=== PATIENT | male | born 1960 | race Caucasian/White ===

== ENCOUNTER 2020-10-18 08:23 | Emergency (ER) | payer OTHER ==
--- OUTSIDE RECORDS SUMMARY | 2020-10-18 08:32 | XMS REPORT ---
:1960 Author Organization [facility] Address [address] [place], [address] [place] [address] Care Team Providers Name Role Phone Greyson Zhang Unavailable [phone] PROBLEMS Type Condition ICD9-CM [id number] Onset Condition SNOMED Code Notes Code Code Dates Status Problem Tobacco use F17.209 Active 788804391 disorder, continuous Problem Hyperlipidemia, E78.5 Active 62207149 unspecified hyperlipidemia type Problem Chronic J44.9 Active 29786282 obstructive pulmonary disease, unspecified COPD type ALLERGIES No Known Allergies ENCOUNTERS from 1960 to 2020-09-16 Encounter Location Date Provider Diagnosis [facility] [place] [address] Sep, Greyson Zhang [address] [place], pulmonary [place] [address] unspecified [place] type J44.9 ; Tobacco use disorder, terence nuous F17.209 ; Histo ry of CVA (cerebrovas cular accident) witho ut residual defici ts Z86.73 ; Lip le babar K13.0 ; Prediab etes R73.03 ; Hyperlipidemia, unspecified hyperlipidemia type E78.5 and Pulmo nary scarring J98.4 IMMUNIZATIONS No Information SOCIAL HISTORY Tobacco Use: Social History Observation Description Date Details (start date - stop date) Current Smoker Sex Assigned At : Social History Observation Description Sex Assigned At Unknown Alcohol Screen Question Answer Notes Did you have a drink containing alcohol in the past year? No Points 0 Interpretation Negative Tobacco Use/Smoking Question Answer Notes Are you a current smoker How many cigarettes a day do you smoke? 11-20 How often do you smoke cigarettes? every day REASON FOR REFERRAL No Information VITAL SIGNS Height 74 in Sep, Weight 195 lbs Sep, Temperature 97 degrees Fahrenheit Sep, BMI 25.03 kg/m2 Sep, Blood pressure systolic 132 mm Hg Sep, Blood pressure diastolic 78 mm Hg Sep, MEDICATIONS Medication SIG (Take, Route, Notes Start Date End Date Status Frequency, Duration) Trelegy Ellipta 1 puff Inhalation Once a Active 100-62.5-25 MCG/INH day Albuterol Sulfate Active PROCEDURES No Information RESULTS No Results REASON FOR VISIT 4wk lab f/u MEDICAL (GENERAL) HISTORY Type Description Date Surgical History Throat-cancer 2008 Goals Section No Information Health Concerns No Information MEDICAL EQUIPMENT No Information MENTAL STATUS No Information FUNCTIONAL STATUS No Information ASSESSMENTS Encounter Date Diagnosis Assessment Notes Treatment Notes Treatm ent Clinical Notes Sep, Chronic obstructive Education given. pulmonary disease, Managed by unspecified COPD pulmonary. Compliant type (ICD-10 - with medication. No J44.9) recent exacerbation. Encouraged on smoking cessation., COPD Education: This is condition in which the airways in the lungs become damaged, making it increasingly difficult for air to pass in and out. Symptoms may include: shortness of breath, chronic cough, chest pain, fatigue with exertion and other. Compliance with medication is vital to control the symptoms and to slow the progression of the disease. Symptoms of COPD cannot be completely eliminated with treatment. COPD usually worsens over time. If your symptoms acutely worsen, please contact the doctor. This may indicate a need to adjust and/or add medication. Pulmonary consultation maybe be required if symptoms do not improve. Sep, Tobacco use Strongly encourged disorder, continuous on cessation. (ICD-10 - F17.209) Education given. Counseling given. Pick a quit date. , Education, counseling done at this visit, offered web sites and medicine to help. We did discussed not only the CAD risk also the risk for multiples cancers, peripheral neuropathy, etc. www.quit.com gives you tip[s and tricks, quit smoking chelist, download my quit rajiv and read quit smoking benefits too. More than 3 minutes were spent with patient. Will follow-up as well. Sep, History of CVA . Encouraged to be (cerebrovascular compliant with accident) without aspirin residual deficits (ICD-10 - Z86.73) Sep, Lip lesion (ICD-10 - Discussed K13.0) differential diagnosis with patient. Education given. Due to chronic nature and location will refer to dermatology for further evaluation and management. Sep, Prediabetes (ICD-10 Diet-Controlled. - R73.03) Education given. Sep, Hyperlipidemia, Diet-Controlled. unspecified Education given. hyperlipidemia type Hyperlipidemia (ICD-10 - E78.5) Education: Hyperlipidemia refers to increased levels of lipids(fats) in the blood, including cholesterol and triglycerides. This can significantly increase your risk of developing coronary artery disease and peripheral artery disease. This can cause chest pain, heart attack, stroke, and fatigue. Treatment is recommended to decrease your risk. Treatment includes: lifestyle modification, low salt/low fat diet, exercise, tobacco cessation, low alcohol intake and sometimes medication. Blood tests (TC,TG, HDL, LDL) are utilized to determine treatment regimens. TC(Total cholesterol) should be below 200. TG(Total Triglycerides) should be below 150. HDL(Good cholesterol) should be above 40. LDL(Bad Cholesterol) should be below 130(if you have one risk factor) or less than 100( if you have more than one risk factor or have DM/CAD/PVD). Compliance with medication and treatment is vital. If you have questions, talk to your doctor. Sep, Pulmonary scarring Referral to Pulm. (ICD-10 - J98.4) Sep, Other -- Medication reviewed and updated. -- Dietary and Lifestyle modifications addressed regarding diet, exercise and weight managemen t. -- Treatment options, risks and benefits, side effects reviewed in detail. -- Advised on signs/symptoms to monitor and when to call clinic and/or visit the nearest ER. Patient verbalized understanding and agreeable with plan. PLAN OF TREATMENT Treatment Notes Assessment Notes Clinical Notes Chronic obstructive pulmonary Education given. Managed by disease, unspecified COPD type pulmonary. Compliant with medication. No recent exacerbation. Encouraged on smoking cessation., COPD Education: This is condition in which the airways in the lungs become damaged, making it increasingly difficult for air to pass in and out. Symptoms may include: shortness of breath, chronic cough, chest pain, fatigue with exertion and other. Compliance with medication is vital to control the symptoms and to slow the progression of the disease. Symptoms of COPD cannot be completely eliminated with treatment. COPD usually worsens over time. If your symptoms acutely worsen, please contact the doctor. This may indicate a need to adjust and/or add medication. Pulmonary consultation maybe be required if symptoms do not improve. Tobacco use disorder, continuous Strongly encourged on cessa tion. Education given. Counseling given. Pick a quit date. , Education, counseling done at this visit, offered web sites and medicine to help. We did discussed not only the CAD risk also the risk for multiples cancers, peripheral neuropathy, etc. www.quit.[employer] gives you tip[s and tricks, quit smoking chelist, download my quit rajiv and read quit smoking benefits too. More than 3 minutes were spent with patient. Will follow-up as well. History of CVA (cerebrovascular . Encouraged to be complian t with accident) without residual deficits aspirin Lip lesion Discussed differential diagnosis with patient. Education given. Due to chronic nature and location will refer to dermatology for further evaluation and management. Prediabetes Diet-Controlled. Education given. Hyperlipidemia, unspecified Diet-Controlled. Education given . hyperlipidemia type Hyperlipidemia Education: Hyperlipidemia refers to increased levels of lipids(fats) in the blood, including cholesterol and triglycerides. This can significantly increase your risk of developing coronary artery disease and peripheral artery disease. This can cause chest pain, heart attack, stroke, and fatigue. Treatment is recommended to decrease your risk. Treatment includes: lifestyle modification, low salt/low fat diet, exercise, tobacco cessation, low alcohol intake and sometimes medication. Blood tests (TC,TG, HDL, LDL) are utilized to determine treatment regimens. TC(Total cholesterol) should be below 200. TG(Total Triglycerides) should be below 150. HDL(Good cholesterol) should be above 40. LDL(Bad Cholesterol) should be below 130(if you have one risk factor) or less than 100( if you have more than one risk factor or have DM/CAD/PVD). Compliance with medication and treatment is vital. If you have questions, talk to your doctor. Pulmonary scarring Referral to Pulm. Treatment Notes Test Name Order Date Lipid Panel With LDL/HDL Ratio 2020-09-16 Hemoglobin A1c 2020-09-16 CBC With Differential/Platelet 2020-09-16 Next Appt Details 3 month TV + Labs 1 week before Reason: Provider Name:Greyson Zhang, 2020-12-10 0 8:15:00 AM, [address] [place], [address], [place], [address], Provider Name:Greyson Zhang, 2020-12-17 0 4:10:00 PM, [address] [place], [address], [place], [address], Insurance Providers Payer Name Payer Payer Insured Patient Coverage Coverage End Address Phone Name Relationship to Start Date Jonathan e Insured Ambetter from [phone] [place], [place] [id number] [place] [phone]
--- OUTSIDE RECORDS SUMMARY | 2020-10-18 08:32 | XMS REPORT ---
:1960 Author Organization [facility] Address [address] [place], Daniel. [address] [place] [address] Care Team Providers Name Role Phone Greyson Zhang Unavailable [phone] PROBLEMS Type Condition ICD9-CM [id number] Onset Condition SNOMED Code Notes Code Code Dates Status Problem Tobacco use F17.209 Active 958785741 disorder, continuous Problem Chronic J44.9 Active 78614594 obstructive pulmonary disease, unspecified COPD type ALLERGIES No Known Allergies ENCOUNTERS from 1960 to 2020-08-27 Encounter Location Date Provider Diagnosis [facility] [address] Aug, 2020 [place] [address] IMMUNIZATIONS No Information SOCIAL HISTORY Tobacco Use: [...] REASON FOR REFERRAL No Information VITAL SIGNS No information MEDICATIONS Medication SIG (Take, Route, Frequency, Start Date End Date Status Duration) Albuterol Sulfate Active Trelegy Ellipta 100-62.5-25 1 puff Inhalation Once a day Active MCG/INH PROCEDURES No Information RESULTS No Results REASON FOR VISIT CT chest results MEDICAL (GENERAL) HISTORY Type Description Date Surgical History Throat-cancer 2009 Goals Section No Information Health Concerns No Information MEDICAL EQUIPMENT No Information MENTAL STATUS No Information FUNCTIONAL STATUS No Information ASSESSMENTS No Information PLAN OF TREATMENT Next Appt Details Provider Name:Greyson Zhang, 2020-09-16 0 4:10:00 PM, [address], [address], [place], [address], Insurance Providers Payer Name Payer Payer Insured Patient Coverage Coverage End Address Phone Name Relationship to Start Date Jonathan e Insured Ambetter from [phone] [place], self [place] [id number] [address] [facility] [phone]
--- OUTSIDE RECORDS SUMMARY | 2020-10-18 08:32 | XMS REPORT ---
:1960 Author Organization [facility] Address [address] [place], [address]. [address] [place] [address] Care Team Providers Name Role Phone Greyson Zhang Unavailable [phone] PROBLEMS Type Condition ICD9-CM OIP27-XH Onset Condition SNOMED Code Notes Code Code Dates Status Problem Tobacco use F17.209 Active 575964084 disorder, continuous Problem Chronic J44.9 Active 72241169 obstructive pulmonary disease, unspecified COPD type ALLERGIES No Known Allergies ENCOUNTERS from 1960 to 2020-08-15 Encounter Location Date Provider Diagnosis [facility] [address] Aug, Greyson pelaez [facility] 200 [facility] [place] [address] in adult Z00.0 0 ; Chronic obstruc tive pulmonary disea se, unspecified HEEL BUILDER D type J44.9 ; Tobacco use disorder, terence nuous F17.209 ; Encou nter for screening f or other viral dis eases Z11.59 ; Histor y of CVA (cerebrovas cular accident) witho ut residual defici ts Z86.73 ; Encoun ter for screening f or lung cancer Z12 .2 and Lip lesion K13. 0 IMMUNIZATIONS No Information SOCIAL HISTORY Tobacco Use: [...] No Information VITAL SIGNS Height 74 in Aug, Weight 194.1 lbs Aug, Temperature 98.0 degrees Fahrenheit Aug, BMI 24.92 kg/m2 Aug, Oximetry 95 % Aug, Respiratory Rate 17 /min Aug, Blood pressure systolic 119 mm Hg Aug, Blood pressure diastolic 78 mm Hg Aug, MEDICATIONS Medication SIG (Take, Route, Frequency, Start Date End Date Status Duration) Albuterol Sulfate Active Trelegy Ellipta 100-62.5-25 1 puff Inhalation Once a day Active MCG/INH PROCEDURES No Information RESULTS No Results REASON FOR VISIT Wellness. In office. MEDICAL (GENERAL) HISTORY Type Description Date Surgical History Throat-cancer 2009 Goals Section No Information Health Concerns No Information MEDICAL EQUIPMENT No Information MENTAL STATUS No Information FUNCTIONAL STATUS No Information ASSESSMENTS Encounter Date Diagnosis Notes Aug, Lip lesion (ICD-10 - K13.0) Aug, Encounter for screening for lung cancer (ICD-10 - Z12.2) Aug, Tobacco use disorder, continuous (ICD-10 - F17.209) Aug, Chronic obstructive pulmonary disease, u nspecified COPD type (ICD-10 - J44.9) Aug, History of CVA (cerebrovascular accident ) without residual deficits (ICD-10 - Z86.73) Aug, Encounter for screening for other viral diseases (ICD-10 - Z11.59) Aug, Encounter for wellness examination in ad ult (ICD-10 - Z00.00) PLAN OF TREATMENT Treatment Notes Assessment Notes Clinical Notes Encounter for wellness examination -- Wellness Exam performe d without in adult /Rectal examination (Asymptomatic) at this time. -- Encourage regular exercise and healthy diet. -- Take a baby aspirin daily: N/A. -- Consider having a flu vaccine every August or September. -- A complete exam is suggested yearly. -- Reminder to always use seat belts. -- It is suggested that lipids (fat and cholesterol) be checked on a yearly basis. The goal here would be to keep the bad cholesterol level (LDL) below 100. -- For colorectal cancer screening, return 1 stool hemoccult cards (test for hidden blood). The [place] [employer] also suggests colonoscopy at age 50 and then every 10 years. If interested in this test, we can refer you to a surgeon or top case assembler. -- It is a good idea to periodically check the scrotum/testis for any new lumps or changes. -- It is a good idea to have a complete eye exam a minimum of every 3 years. Increased eye pressure is called glaucoma and it is a common cause of blindness. -- Encouraged on making dental appointment every 6-12 months for check-up -- Every 10 years, it is anderson to have a tuberculosis skin test (PPD) and D-Tetanus. -- Avoid excessive sun exposure. -- Apply sunscreen when outside. Check skin for any abnormal lesions/moles. Chronic obstructive pulmonary Education given. Managed by [...] spent with patient. Will follow-up as well. Encounter for screening for other Indicated as a one-time sc reen for viral diseases not high-risk patients who were born between 3615-8309. History of CVA (cerebrovascular . Encouraged to be complian t with accident) without residual deficits aspirin Lip lesion Discussed differential diagnosis with patient. Education given. Due to chronic nature and location will refer to dermatology for further evaluation and management. Treatment Notes Test Name Order Date Lipid Panel With LDL/HDL Ratio 2020-08-15 Hepatitis Panel (4) 2020-08-15 UA/M w/rflx Culture, Comp 2020-08-15 Prostate-Specific Ag, Serum 2020-08-15 Hemoglobin A1c 2020-08-15 Comp. Metabolic Panel (14) (CMP) 2020-08-15 Uric Acid, Serum 2020-08-15 CBC With Differential/Platelet 2020-08-15 TSH reflex to T4F 2020-08-15 LDCT (Low-Dose CT LUNG CA SCREENING) 2020-08-15 Next Appt Details 4 Weeks TV Reason: Provider Name:Greyson Zhang, 2020-09-16 0 4:10:00 PM, [address], [address], [place], [address], Insurance Providers Payer Name Payer Payer Insured Patient Coverage Coverage End Address Phone Name Relationship to Start Date Jonathan e Insured Ambetter from [phone] [place], self [place] [id number] [phone] [facility] [phone]
--- OUTSIDE RECORDS SUMMARY | 2020-10-18 08:32 | XMS REPORT | Continuity of Care Document ---
:1960 Author Organization [facility] Address [address] [address] Care Team Providers Name Role Phone Doctor Unassigned, Name Attending Clinician Unavailable Jakub ALVES, Y Attending Clinician Payers Payer Name Policy Type Policy Number Effective Date Expiration Date S ource Problems This patient has no known problems. Allergies, Adverse Reactions, Alerts This patient has no known allergies or adverse reactions. Medications Ordered Filled Start Stop Current Ordering Indication Dosage Frequency Signature Comments Components Source Medication Medication Date Date Medication? Clinician (SIG) Name Name Albuterol Albuterol Yes Greyson not [facility] Sulfate Sulfate Zhang defined [facility] Trelegy Trelegy Yes Greyson [facility] [address] [facility] Ellipta Ellipta Zhang [facility] Procedures This patient has no known procedures. Encounters Start End Encounter Admission Attending Care Care Encounter Source Date/Time Date/Time Type Type Clinicians Facility Department ID 2020-09-16 2020-09-[address] [facility] [id number] [facility] 2020-08-27 2020-08-[address] [facility] [id number] [facility]pat[facility] Clinics 2020-08-15 2020-08-15 [facility] [id number] Outpati ent Clinics 2020-07-16 2020-07-16 [facility] [id number] [facility] 14:10:00 14:10:00 [facility] 2020-02-16 2020-02-16 Orders Doctor GORDO [id number] 00:00:00 00:00:00 Only UnassignedLUKAS 350.1.13.10 [place] [facility] 4.2.7.2.686 [id number] 2020-01-22 2020-01-22 Telephone Jae Call [id number] 00:00:00 00:00:00 Y Pediatric 350.1.13.10 s and 4.2.7.2.686 Adult [id number] Primary [facility] 2019-07-18 2019-07-18 Hospital Jae Call [id number] 16:22:24 23:59:00 Encounter Y Pediatric 350.1.13.10 s and 4.2.7.2.686 Adult [id number] Primary 809 Care Clinic 2019-07-17 2019-07-17 Orders Doctor GORDO [id number] 00:00:00 00:00:00 Only UnassignedLUKAS 350.1.13.10 [place] [facility] 4.2.7.2.686 [id number] Results Test Description Test Time Test Comments Results Result [facility] e Comments - CT LD LUNG CA 2020-02-23 Name: SCREENING 09:59:00 ELZBIETA TERAN [facility] [place] : 1960 Age/S: 60 / M [address] [place] [address] Unit #: [id number] Loc: [facility] [place] [address] Phys: Dylan Win MD Acct: [id number] Dis Date: Status: REG CLI PHONE #: [phone] Exam Date: 02/23/2020921 FAX #: [phone] Reason: LOUISA LOUISGINIMARK, CIGS EXAMS: CPT CODE: [id number] CT LD LUNG CA SCREENING G0297 LUNG SCREENING LOW-DOSE CT THORAX WITHOUT CONTRAST HISTORY: Asymptomatic patient meeting high-risk criteria for lung screening. Nicotine dependence. Greater than 20 pack year smoking history. Currently smoking. Exam: Follow-up. COMPARISON: 10/11/2017. TECHNIQUE: Noncontrast, volumetric low-dose CT Chest. KVp = 120; mA = 50; CTDlvol = 2 mGy; DLP: 79.6 mGy-cm FINDINGS: LUNG NODULES: None. OTHER LUNG DISEASE: Severe emphysematous changes. Left apical pleural-parenchymal scarring and calcified granuloma. Right lower lobe calcified granuloma. Bilateral lung base pleural thickening. Right lower lobe bronchiectatic changes, similar to prior. AORTA: Normal caliber. HEART / PERICARDIUM: [<Normal size. No effusions. Unremarkable.>] Mild coronary atherosclerosis. ADENOPATHY: [<No significant findings.>]. BASE OF NECK: No significant findings. UPPER ABDOMEN: [<No significant findings.>] . OTHER INCIDENTALS: [<None.>]. IMPRESSION: 1. Lung-RADS Category 2. Continue annual screening with LD CT in 12 months. 2. Severe emphysema with bilateral lower lobe pleural thickening. Category S -- Other findings requiring urgent evaluation?: No. FO R INTERNAL CODING PURPOSES ONLY RESULT CODE: L2 FOLLOW UP: L12 PAGE 1 Signed Report (CONTINUED) Name: EL[facility]A [facility]AN [facility] [place] : 1960 Age/S: 60 / M [address] [place] [address] Unit #: [id number] Loc: [place] [address] Phys: Dylan Win MD Acct: [id number] Dis Date: Status: REG CLI PHONE #: [phone] Exam Date: 02/23/2020921 FAX #: [phone] Reason: EDGARELMA JENNIFER, CIGS EXAMS: CPT CODE: [id number] CT LD LUNG CA SCREENING G0297 <Continued> at 0959 Reported and signed by: Eden Willett M.D. CC: Jae Call MD; Dylan Win MD Technologist:Trey Michele, RT(R) CTDI: DLP: Trnscb Date/Time: 02/23/2020 (0959) [email or web address] Orig Print D/T: S: 02/23/2020 (1003) PAGE 2 Signed Report
--- NOTE | 2020-10-18 09:44 | RAD REPORT ---
EXAM DESCRIPTION: CT - Chest Abd Pelvis Wo Con - 10/18/2020 9:17 am CLINICAL HISTORY: Left flank pain with chest pain, COPD and lymphoma history COMPARISON: Lung Cancer Screening CT W/O dated 08/26/2020 TECHNIQUE: During dynamic enhancement using 100 milliliters nonionic IV contrast, axial 5 millimeter thick images of the chest, abdomen and pelvis were obtained. Biphasic technique was utilized through the abdomen. Oral contrast was administered. All CT scans are performed using dose optimization technique as appropriate and may include automated exposure control or mA/KV adjustment according to patient size. FINDINGS: Advanced for age fibro emphysematous lung changes are present. Findings are most pronounce d in each lung base where there is pleural thickening and pleural abutting parenchymal masslike nodul arity. No changes of the short interval since August 26. No pneumothorax or pleural effusion. No ch est wall mass or abnormal axillary lymphadenopathy seen. Mediastinal and hilar regions show no mass or lymphadenopathy. No significant cardiac finding. The liver, spleen and pancreas show no significant findings. Gallbladder and biliary tree are normal . Gallstones can be occult on CT imaging. Mild left-sided hydronephrosis is present and the left kidney appears mildly edematous relative to th e right. No obstructing or nonobstructing calculi seen. No stone in a partially filled bladder. No ad renal abnormalities. No urinary bladder abnormalities. No dilated bowel loops or focal ball bowel wall thickening. No free air, free fluid or inflammatory stranding. No hernia, mass or bulky lymphadenopathy. No significant bone or vascular finding. IMPRESSION: Mild left-sided hydronephrosis is present down to the UVJ. However, no obstructing or no nobstructing calculus seen. Patient may have recently passed a stone. Blood or inflammatory debris in the ureter can cause hydron ephrosis. Isodense masses and pyelonephritis are not excluded on noncontrast imaging. Advanced for age emphysema changes are present. The pleural thickening and pleural abutting parenchym al masslike nodularity is stable from August but warrants monitoring for growth. No acute chest find ing.
[2020-10-18] MEDS ORDERED: NA CHLORIDE 0.9% 1,000 ML ONE (10:17)
[2020-10-18] MEDS ORDERED: ONDANSETRON 4 MG/2 ML VIAL ONE (10:17)
[2020-10-18] MEDS ORDERED: MORPHINE 4 MG/ML SYR ONE (10:17)
[2020-10-18 10:37] LABS: Hematocrit 43.7 % (39.6-49.0); Lymphocytes % 8.9 % (15.3-44.8); MPV 6.8 fL (7.6-11.3); RBC Red Blood Cell Count 4.86 M/uL (4.33-5.43)
[2020-10-18 11:15] LABS: Urine Blood 2+ (NEG); Urine Glucose NEGATIVE (NEG); Urine Protein NEGATIVE (NEG)
[2020-10-18 11:17] LABS: Potassium 4.2 mmol/L (3.5-5.1)
--- NOTE | 2020-10-18 13:19 | EDPHYS ---
Physician Documentation [facility] Name: Amos Nieves Age: 60 yrs Sex: Male : 1960 Arrival Date: 10/18/2020 Time: 08:26 Bed 18 Private MD: ED Physician Juan Daniel Rutledge HPI: 10/18 10:09 This 60 yrs old Male presents to ER via Ambulatory with complaints of kb Constipation, Urinary Problem. 10:09 The patient complains of pain in the left flank. The pain radiates to the groin. Onset: kb The symptoms/episode began/occurred yesterday. Modifying factors: The symptoms are alleviated by nothing. the symptoms are aggravated by nothing. Associated signs and symptoms: Pertinent positives: urinary frequency, nausea, vomiting, Pertinent negatives: diarrhea, dizziness, dysuria, fever, headache, hematuria, pain radiating to the lower extremities. Severity of pain: At its worst the pain was moderate in the emergency department the pain has improved markedly. The patient has not experienced similar symptoms in the past. The patient has not recently seen a physician. Pt reports left flank pain started yesterday with nausea, difficulty urinating, frequency and small amounts. States the pain went away last night, then came back this morning causing nausea and vomiting. Urinary symptoms have improved and pain is starting to subside at this time.. Historical: - Allergies: 08:50 No Known Allergies; dm5 - PMHx: 08:50 COPD; lymphoma; TIA; dm5 - Immunization history:: Adult Immunizations up to date. - Social history:: Smoking status: Patient reports the use of cigarette tobacco products, smokes one-half pack cigarettes per day. ROS: 10:08 Constitutional: Negative for fever, chills, and weight loss, Cardiovascular: Negative kb for chest pain, palpitations, and edema, Respiratory: Negative for shortness of breath, cough, wheezing, and pleuritic chest pain, Abdomen/GI: Negative for abdominal pain, nausea, vomiting, diarrhea, and constipation, MS/Extremity: Negative for injury and deformity, Skin: Negative for injury, rash, and discoloration, Neuro: Negative for headache, weakness, numbness, tingling, and seizure. 10:08 Back: Positive for flank pain, on the left. 10:08 : Positive for urinary frequency, small amounts, difficulty urinating. Exam: 10:08 Constitutional: This is a well developed, well nourished patient who is awake, alert, kb and in no acute distress. Head/Face: Normocephalic, atraumatic. Chest/axilla: Normal chest wall appearance and motion. Nontender with no deformity. No lesions are appreciated. Cardiovascular: Regular rate and rhythm with a normal S1 and S2. No gallops, murmurs, or rubs. Normal PMI, no JVD. No pulse deficits. Respiratory: Lungs have equal breath sounds bilaterally, clear to auscultation and percussion. No rales, rhonchi or wheezes noted. No increased work of breathing, no retractions or nasal flaring. Abdomen/GI: Soft, non-tender, with normal bowel sounds. No distension or tympany. No guarding or rebound. No evidence of tenderness throughout. Back: No spinal tenderness. No costovertebral tenderness. Full range of motion. Skin: Warm, dry with normal turgor. Normal color with no rashes, no lesions, and no evidence of cellulitis. MS/ Extremity: Pulses equal, no cyanosis. Neurovascular intact. Full, normal range of motion. Neuro: Awake and alert, GCS 15, oriented to person, place, time, and situation. Cranial nerves II-XII grossly intact. Motor strength 5/5 in all extremities. Sensory grossly intact. Cerebellar exam normal. Normal gait. Vital Signs: 08:47 BP 136 / 79; Pulse 66; Resp 18; Temp 97.4; Pulse Ox 100% on R/A; Weight 88.45 kg; dm5 Height 6 ft. 3 in. (190.50 cm); Pain 8/10; 10:38 BP 116 / 77; Pulse 64; Resp 18; Pulse Ox 99% on R/A; ll1 11:36 BP 108 / 70; Pulse 64; Resp 18; Pulse Ox 99% on R/A; ll1 08:47 Body Mass Index 24.37 (88.45 kg, 190.50 cm) dm5 MDM: 09:50 Patient medically screened. kb 10:08 Data reviewed: vital signs, nurses notes. Data interpreted: Pulse oximetry: on room air kb is 100 %. Interpretation: normal. 11:45 Counseling: I had a detailed discussion with the patient and/or guardian regarding: the historical points, exam findings, and any diagnostic results supporting the discharge/admit diagnosis, lab results, radiology results, the need for outpatient follow up, a family practitioner, to return to the emergency department if symptoms worsen or persist or if there are any questions or concerns that arise at home. 10/18 09:57 Order name: IV Start; Complete Time: 10:16 kb 12 09:57 Order name: Urine Dipstick-Ancillary (obtain specimen); Complete Time: 11:31 kb Administered Medications: 10:15 Drug: Zofran (Ondansetron) 4 mg Route: IVP; Site: right antecubital; ll1 11:35 Follow up: Response: No adverse reaction; RASS: Alert and Calm (0) ll1 10:16 Drug: NS 0.9% 1000 ml Route: IV; Rate: 1000 ml; Site: right antecubital; ll1 11:36 Follow up: Response: No adverse reaction; RASS: Alert and Calm (0); IV Status: ll1 Completed infusion; IV Intake: 1000ml 10:16 Drug: morphine 4 mg Route: IVP; Site: right antecubital; ll1 11:36 Follow up: Response: No adverse reaction; Pain is decreased; RASS: Alert and Calm (0) ll1 Disposition: 15:01 Co-signature as Attending Physician, Juan Daniel Rutledge MD I agree with the assessment and kdr plan of care. Disposition: 10/18/20 11:46 Discharged to Home. Impression: Unspecified hydronephrosis. - Condition is Stable. - Discharge Instructions: Hydronephrosis. - Prescriptions for Zofran 4 mg Oral Tablet - take 1 tablet by ORAL route every 6 hours As needed; 20 tablet. Diclofenac Sodium 75 mg Oral Tablet, Delayed Release (E.C.) - take 1 tablet by ORAL route 2 times per day As needed; 30 tablet. - Medication Reconciliation Form, Thank You Letter, Antibiotic Education, Prescription Opioid Use form. - Follow up: Emergency Department; When: As needed; Reason: Worsening of condition. Follow up: Private Physician; When: 2 - 3 days; Reason: Recheck today's complaints, Continuance of care, Re-evaluation by your physician. Signatures: Keila Reyna, ELIAS TINOCO-Domenica Calvert, RN RN dm5 Juan Daniel Rutledge MD MD kdr Lewis, Lynsay, RN RN ll1 Corrections: (The following items were deleted from the chart) 11:57 11:46 10/18/2020 11:46 Discharged to Home. Impression: Unspecified hydronephrosis. ll1 Condition is Stable. Forms are Medication Reconciliation Form, Thank You Letter, Antibiotic Education, Prescription Opioid Use. Follow up: Emergency Department; When: As needed; Reason: Worsening of condition. Follow up: Private Physician; When: 2 - 3 days; Reason: Recheck today's complaints, Continuance of care, Re-evaluation by your physician. kb
--- NOTE | 2020-10-18 13:19 | ER ---
Nurse's Notes [facility] Name: Amos Nieves Age: 60 yrs Sex: Male : 1960 Arrival Date: 10/18/2020 Time: 08:26 Bed 18 Private MD: Diagnosis: Unspecified hydronephrosis Presentation: 10/18 08:47 Chief complaint: Patient states: left sided flank pain started yesterday. nasuea an dm5 vomiting started yesterday. pt denies history of kidney stone. Coronavirus screen: Client denies travel out of the [place] in the last 14 days. nausea, vomiting. Ebola Screen: Patient negative for fever greater than or equal to 101.5 degrees Fahrenheit, and additional compatible Ebola Virus Disease symptoms Patient denies exposure to infectious person. Patient denies travel to an Ebola-affected area in the 21 days before illness onset. No symptoms or risks identified at this time. Initial Sepsis Screen: Does the patient meet any 2 criteria? No. Patient's initial sepsis screen is negative. Does the patient have a suspected source of infection? No. Patient's initial sepsis screen is negative. Risk Assessment: Do you want to hurt yourself or someone else? Patient reports no desire to harm self or others. Onset of symptoms was October 17, 2020. 08:47 Method Of Arrival: Ambulatory dm5 08:47 Acuity: ABUNDIO 3 dm5 Triage Assessment: 10:15 General: Appears in no apparent distress. Behavior is calm, cooperative, appropriate ll1 for age. Historical: - Allergies: 08:50 No Known Allergies; dm5 - PMHx: 08:50 COPD; lymphoma; TIA; dm5 - Immunization history:: Adult Immunizations up to date. - Social history:: Smoking status: Patient reports the use of cigarette tobacco products, smokes one-half pack cigarettes per day. Screenin:52 Abuse screen: Denies threats or abuse. Nutritional screening: No deficits noted. ll1 Tuberculosis screening: No symptoms or risk factors identified. 10:38 Fall Risk IV access (20 points). Total Nichols Fall Scale indicates No Risk (0-24 pts). ll1 Assessment: 10:15 Pain: Complains of pain in left flank Pain currently is 2 out of 10 on a pain scale. ll1 Quality of pain is described as aching, Pain began 1 day ago. Neuro: No deficits noted. Cardiovascular: No deficits noted. Respiratory: No deficits noted. GI: Abdomen is flat, Bowel sounds present X 4 quads. Abd is soft and non tender X 4 quads. Reports lower abdominal pain, nausea. : No signs and/or symptoms were reported regarding the genitourinary system. Denies burning with urination. Vital Signs: 08:47 BP 136 / 79; Pulse 66; Resp 18; Temp 97.4; Pulse Ox 100% on R/A; Weight 88.45 kg; dm5 Height 6 ft. 3 in. (190.50 cm); Pain 8/10; 10:38 BP 116 / 77; Pulse 64; Resp 18; Pulse Ox 99% on R/A; ll1 11:36 BP 108 / 70; Pulse 64; Resp 18; Pulse Ox 99% on R/A; ll1 08:47 Body Mass Index 24.37 (88.45 kg, 190.50 cm) dm5 ED Course: 08:26 Patient arrived in ED. rg4 08:49 Triage completed. dm5 09:35 Keila Reyna FNP-C [facility]. kb 09:35 Juan Daniel Rutledge MD is Attending Physician. kb 09:52 Christopher Canseco, DAWSON is Primary Nurse. ll1 09:52 Arm band placed on Patient placed in an exam room, on a stretcher. ll1 10:15 Patient has correct armband on for positive identification. Bed in low position. Call ll1 light in reach. Side rails up X2. Adult w/ patient. Pulse ox on. NIBP on. 10:15 Inserted saline lock: 20 gauge in right antecubital area, using aseptic technique. ll1 Blood collected. 11:56 IV discontinued, intact, bleeding controlled, No redness/swelling at site. Pressure ll1 dressing applied. 11:57 No provider procedures requiring assistance completed. ll1 Administered Medications: 10:15 Drug: Zofran (Ondansetron) 4 mg Route: IVP; Site: right antecubital; ll1 11:35 Follow up: Response: No adverse reaction; RASS: Alert and Calm (0) ll1 10:16 Drug: NS 0.9% 1000 ml Route: IV; Rate: 1000 ml; Site: right antecubital; ll1 11:36 Follow up: Response: No adverse reaction; RASS: Alert and Calm (0); IV Status: ll1 Completed infusion; IV Intake: 1000ml 10:16 Drug: morphine 4 mg Route: IVP; Site: right antecubital; ll1 11:36 Follow up: Response: No adverse reaction; Pain is decreased; RASS: Alert and Calm (0) ll1 Intake: 11:36 IV: 1000ml; Total: 1000ml. ll1 Outcome: 11:46 Discharge ordered by . liseth 11:57 Patient left the ED. ll1 11:57 Discharged to home ambulatory. ll1 11:57 Condition: stable 11:57 Discharge instructions given to patient, Instructed on discharge instructions, follow up and referral plans. medication usage, Demonstrated understanding of instructions, follow-up care, medications, Prescriptions given X 2. Signatures: Keila Reyna, WATERWOR[employer] CHIEF ENGINEER-C W[employer]WOR[employer] CHIEF ENGINEER-Domenica Calvert, RN RN dm5 Aziza Jacob4 Christopher Canseco RN RN ll1
[2020-10-18 18:45] LABS: Platelet Estimate INCR
[2020-10-18 18:46] LABS: Blood Morphology Comment NOT SEEN (NOT SEEN)
[2020-10-21 13:01] VITALS: TEMP 97.4
[2020-10-21 13:02] VITALS: O2SAT 99
[2020-10-21 13:03] VITALS: BP 108/70
== END 2020-10-18 11:57 | disposition home or self-care (01) ==
LOC: ER 08:23
DX: N13.30 Unspecified hydronephrosis (principal); F17.210 Nicotine dependence, cigarettes, uncomplicated; Z85.72 Personal history of non-Hodgkin lymphomas
CPT/HCPCS: 96361; 85025; 80048; 36415; 81003; 71250; 74176; 96375; 96374; 99284; J7030; J2405